=== PATIENT | female | born 1980 | race Caucasian/White ===

== ENCOUNTER 2018-09-20 14:09 | Outpatient (REF) | payer BC, SELFPAY ==
--- NOTE | 2018-09-20 13:45 | PAPFT_PTH ---
PATIENT: Lalita Dale LOC: [facility] U#:[id number] AGE/SX: 38/F ROOM: RE09/20/[address]: MARYLOU Hernandez : 1980 BED: DIS: 09/20/2018 SPEC #: [id number] RECD: 09/20/18 17:18 STATUS: MARIA TERESACari REQ #: [id number] KEVIN: 09/20/18 13:[address]: Nkechi Bardales DEPT: [facility] Cytology RECD BY: Misty Mcclain ENTERED: 09/20/18 17:19 SP TYPE: PAPFT SUSAN DR: Unknown,Unknown Tissues: 1 - CX/ENDOCX FOR PAP SMEARS Procedures: PAP THIN PREP/UVM Screening HPV DNA PROBE Comments: [id number]
== END 2018-09-20 14:29 ==
LOC: LBN 14:09
PROVIDERS: Visit Provider Nurse Practitioner Family
DX: Z12.4 Encounter for screening for malignant neoplasm of cervix (principal); Z11.51 Encounter for screening for human papillomavirus (HPV)
CPT/HCPCS: 88142; 87624

== ENCOUNTER 2018-11-29 16:55 | Emergency (ER) | payer BC, SELFPAY ==
[2018-11-29 16:58] VITALS: BP 133/80; PULSE 78; RESP 18; TEMP 36.9; O2SAT 98
[2018-11-29 17:01] VITALS: RESP 18
--- NOTE | 2018-11-29 18:14 | W.ED.GENAD ---
Discharge Plan Disposition Patient Disposition: HOME Condition: Stable Discharge Details Chief Complaint: GenMedical Clinical Impression: Heart palpitations Primary Care Provider: John Rae ED Provider: Antonio Raya Home Meds and New Rx's Prescriptions: No Action multivitamin [Daily Vitamin] 1 EACH tablet 1 ea PO DAILY RF: 0 Mirena 1 EACH intrauterine device 1 ea Intrauterine RF: 0 Discharge Instructions Instructions: Palpitations (ED) Additional Instructions: i have placed you on our follow up list to see your primary care provider sooner if you feel more ill or have severe pain or worsening difficulty breathing return to the emergency department Medical Decision Making 38 yo female who denies chronic medical problems, smoking alcohol or drug use comes in with complaints of feeling her heart beating fast and having a choking sensation intermittently in her neck with this for the last few days. The symptoms last a minute or so when they happen, can't think of anything that brings them on or makes them go away. No fevers, chills and has no symptoms currently, no throat pain. She has normal oropharynx, no respiratory dsitress or other symptoms. I suspect she could have episodes of svt. Will check for electrolyte abnormalities and anemia and thyroid disorder. No severe chest pain so doubt acs, heart score is 1 will check troponin. No evidence of dvt, no pleuritic pain and no hypoxia or tachycardia so doubt pe. No tearing back pain so doubt dissection. If negative will likely refer to pcp for outpatient holter vs zio labs unremarkable as is ecg and remains asymptomatic. Will have her f/u with pcp for possible holter vs zio and return precautions given Differential Diagnosis svt, anemia, thyroid dysfunction Lab Data Lab results reviewed: Yes I reviewed the patient's lab results. ECG Data Attestation: I personally reviewed and interpreted this ECG (s) as follows: Prior ECG tracings: not available for review Interpretation: sinus rhythm, rate of 60, pr 150, no acute st t wave ischemic findings HPI General Mode of arrival: ambulatory. Date/Time Provider Initiated Documentation: 11/29/18 17:02. Limitations to Documentation: no limitations. Information obtained by: patient. History of Present Illness 38 year old F presents to the emergency department with the chief complaint of palpitations, described as moderate, Patient started experiencing this day(s) (3) and it has been intermittent. No relieving factors improve symptom(s), No exacerbating factors reported . Patient did receive the following treatments prior to arrival, none Related Data Home Medications Medication Instructions Recorded Confirmed multivitamin [Daily Vitamin] 1 ea PO DAILY 09/28/12 11/29/18 levonorgestrel [Mirena] 1 ea INTRAUTERINE 10/03/13 09/20/18 Allergies Allergy/AdvReac Type Severity Reaction Status Date / Time No Known Drug Allergies Allergy Unverified 11/29/18 17:01 General Stated Complaint: GenMedical DELIA: 4 Review of Systems Review of Systems All systems reviewed & are unremarkable except as noted in HPI and below Constitutional Denies chills, Denies fever(s) and Denies weakness Respiratory Denies cough Gastrointestinal Denies abdominal pain, Denies nausea and Denies vomiting Musculoskeletal Denies joint swelling Neurologic Denies weakness Endocrine Denies heat intolerance [facility], [facility] Social History (Updated 09/20/18 @ 13:31 by Nkechi Bardales NP) Smoking/Tobacco Use Status: Never Alcohol Intake: current Alcohol Intake frequency: holidays/special occasions only Substance use type: does not use current occupation: [employer] Do you feel safe at home: Yes Do you feel safe in your relationship?: Yes Exam Const General: no acute distress Orientation: alert HENMT Head: normal to inspection Ears: external ears normal General nose exam: external nose normal Mouth: moist mucous membranes Eyes General: appearance normal, both eyes and all related structures Neck Neck: normal visual inspection Resp Effort & Inspection: normal respiratory effort and able to speak in complete sentences Cardio Rate: regular rate Skin General skin exam: no rashes or lesions noted Neuro General: alert and oriented x3 Extrem General: normal to inspection Psych Mental Status: mental status grossly normal Course Vital Signs Temperature 36.9 C 11/29/18 16:58 Pulse 78 11/29/18 16:58 Respiratory Rate 18 11/29/18 16:58 Blood Pressure 133/80 11/29/18 16:58 Pulse Oximetry 98 11/29/18 16:58 Temperature 36.9 C 11/29/18 16:58 Temperature Source Temporal Artery Scan 11/29/18 16:58 Pulse 78 11/29/18 16:58 Respiratory Rate 18 11/29/18 17:01 Respiratory Effort 11/29/18 17:01 Respiratory Depth Normal 11/29/18 17:01 Respiratory Pattern Normal 11/29/18 17:01 Blood Pressure 133/80 11/29/18 16:58 Pulse Oximetry 98 11/29/18 16:58 Pain Level 0 11/29/18 16:58
[2018-11-29 18:26] LABS: Absolute Basophil Count 0.02 k/cumm (0.0-0.2); Absolute Eosinophil Count 0.09 k/cumm (0.0-0.7); Absolute Lymphocyte Count 2.32 k/cumm (1.2-3.4); Absolute Neutrophil Count 4.21 k/cumm (1.2-6.7); Basophils % 0.3; Eosinophils % 1.3; HCT 41.2 % (36.0-46.0); HGB 14.1 g/dL (12.0-15.5); Lymphocytes % 33.4; Mean Corp. HGB Concentration 34.2 g/dL (32.0-36.0); Mean Corpuscular Hemoglobin 30.7 pg (27.0-33.0); Mean Corpuscular Volume 89.6 fL (80-95); Mean Platelet Volume 9.3 fL (8.0-11.0); Monocytes % 4.3; Neutrophils % 60.7; Platelet Count 284 x1000/uL (130-400); RBC Distribution Width 12.7 % (11.7-14.6); White Blood Cell Count 6.94 k/cumm (4.4-10.8)
[2018-11-29 18:49] LABS: ALT 13 U/L (12-78); AST 6 U/L (15-37); Albumin 4.1 g/dL (3.4-5.0); Alkaline Phosphatase 61 U/L (46-116); Anion Gap 7.7 mmol/L (3-11); BUN 12 mg/dL (7-18); Bilirubin, Total 1.6 mg/dL (0.2-1.0); CO2 27.3 mmol/L (21.0-32.0); CREATININE 0.47 mg/dL (0.55-1.02); Calcium 9.2 mg/dL (8.5-10.1); Chloride 104 mmol/L (98-107); Glucose 93 mg/dL (70-100); Magnesium 2.2 mg/dL (1.8-2.4); Potassium 3.9 mmol/L (3.5-5.1); Sodium 139 mmol/L (136-145); TSH (W/Ref FT4) 2.55 uIU/mL (0.36-3.74); Total Protein 7.1 g/dL (6.4-8.2)
[2018-11-29 18:58] LABS: Troponin I < 0.05 ng/mL (0.00-0.06)
[2018-11-29 19:16] VITALS: BP 133/80; PULSE 78; RESP 18; TEMP 36.9; O2SAT 98
--- NOTE | 2018-11-29 21:57 | NUR.NOTE ---
Nursing Note: faxed to [facility] internal....11/29/18
== END 2018-11-29 19:42 | disposition home or self-care (01) ==
PROVIDERS: Emergency Provider Emergency Medicine; PCP Nurse Practitioner Family
DX: R00.2 Palpitations (principal)
CPT/HCPCS: 36415; 80053; 93005; 99284; 83735; 84443; 84484; 85025; 93010

== ENCOUNTER 2019-01-19 13:23 | Outpatient (REF) | payer BC, SELFPAY ==
[2019-01-19 20:09] LABS: Vitamin D 25 Total 31.8 ng/ml (30-100)
== END 2019-01-19 13:43 ==
LOC: NCHCN 13:23
PROVIDERS: PCP Nurse Practitioner Family; Visit Provider Nurse Practitioner
DX: Z13.21 Encounter for screening for nutritional disorder (principal)
CPT/HCPCS: 82306

== ENCOUNTER 2019-11-03 17:35 | Outpatient (REF) | payer OTHER, SELFPAY ==
[2019-11-06 16:43] LABS: Chlamydia Result Negative (Negative); GC Result Negative (Negative)
== END 2019-11-03 17:55 ==
LOC: LBN 17:35
PROVIDERS: PCP Nurse Practitioner Family; Visit Provider Nurse Practitioner Family
DX: Z11.3 Encounter for screening for infections with a predominantly sexual mode of transmission (principal)
CPT/HCPCS: 87491; 87591

== ENCOUNTER 2021-02-04 13:37 | Outpatient (REF) | payer OTHER, SELFPAY ==
[2021-02-04 14:45] LABS: TSH (W/Ref FT4) 1.81 uIU/mL (0.36-3.74)
== END 2021-02-04 13:38 | disposition home or self-care (01) ==
LOC: NCHCN 13:37
PROVIDERS: PCP Nurse Practitioner Family; Visit Provider Nurse Practitioner
DX: R63.5 Abnormal weight gain (principal); F41.9 Anxiety disorder, unspecified
CPT/HCPCS: 84443

== ENCOUNTER 2021-02-19 02:18 | Outpatient (CLI) | payer OTHER, SELFPAY ==
--- NOTE | 2021-02-19 09:30 | DI.MRI_ITS ---
Exam(s) MR IAC BRAIN WO/W EXAM: MR IAC BRAIN WO/W CLINICAL HISTORY: optokinetic dizziness, r/o MS,DIZZINESS,R42 TECHNIQUE: Multiplanar multisequence MRI of the brain was performed. Both noninfused and contrast i nfused sequences were performed. IV Contrast injected was 13 cc Dotarem. COMPARISON: No exams were available for comparison FINDINGS: CEREBRAL PARENCHYMA: No evidence of intracranial hemorrhage, mass effect nor shift of midline structu re. No extraaxial fluid collections. Ventricles are not enlarged nor shifted. There is no significant focal signal abnormality in the cerebellar hemispheres nor within the kenzie, m idbrain, and thalami. There is no abnormal signal abnormality in the periventricular white matter. There are no ring enhancing lesions in the brain. There is no abnormal meningeal enhancement. DIFFUSION IMAGING: No evidence of restricted diffusion IAC'S: There there is no evidence of mass in the cerebellopontine angles. The 7th and 8th cranial ne rve appear unremarkable within the internal auditory canals on the sub millimeters slice thickness FI ESTA sequence. Also no evidence of enhancing intra canalicular mass PITUITARY GLAND: No mass nor parasellar abnormality. No obvious abnormality in the cavernous sinuses. FLOW VOIDS: The expected flow void are noted. No evidence of obvious aneurysm nor obvious vascular ma lformation. PARANASAL SINUSES: The visualized paranasal sinuses appear unremarkable. ORBITS: No obvious abnormal findings. IMPRESSION: 1. No significant intracranial findings on this MRI scan of the brain. 2. No abnormal enhancing intracranial finding. 3. No evidence of acoustic neuroma-schwannoma. DATA REPOSITORY:
[2021-02-19] MEDS: Normal Saline Flush 10 ML SYR IVP (10:54)
[2021-02-19] MEDS: Gadoterate meglumine 20 ML VIAL 13 ML IVP (10:55)
== END 2021-02-19 02:38 ==
PROVIDERS: PCP Nurse Practitioner Family; Visit Provider Otolaryngology
DX: R42 Dizziness and giddiness (principal)
CPT/HCPCS: 70553

== ENCOUNTER 2021-03-25 19:27 | Outpatient (REF) | payer OTHER, SELFPAY ==
[2021-03-25 20:28] LABS: HCT 43.2 % (36.0-46.0); HGB 14.5 g/dL (11.2-15.7); MCH 30.3 pg (27.0-33.0); MCHC 33.6 % (32.0-36.0); MCV 90.2 fL (80-95); MPV 9.8 fL (8.0-11.0); Platelet Count 273 10^3/uL (130-400); RBC 4.79 10^6/uL (3.93-5.22); RDW 12.2 % (11.7-14.6); WBC 6.26 10^3/uL (4.4-10.8)
[2021-03-25 21:12] LABS: ALT 19 U/L (14-59); AST 11 U/L (15-37); Albumin 4.2 g/dL (3.4-5.0); Alkaline Phosphatase 59 U/L (46-116); Anion Gap 7.8 mmol/L (3-11); BUN 10 mg/dL (7-18); CO2 29.2 mmol/L (21.0-32.0); CREATININE 0.5 mg/dL (0.55-1.02); Calcium 8.9 mg/dL (8.5-10.1); Chloride 105 mmol/L (98-107); Glucose 91 mg/dL (74-106); Potassium 3.8 mmol/L (3.5-5.1); Sodium 142 mmol/L (136-145); Vitamin B12 252 pg/mL (193-986)
[2021-03-27 00:59] LABS: Vitamin D 25 Total 29.5 ng/mL (30-100)
== END 2021-03-25 19:28 | disposition home or self-care (01) ==
LOC: NCHCN 19:27
PROVIDERS: PCP Nurse Practitioner Family; Visit Provider Nurse Practitioner
DX: F41.9 Anxiety disorder, unspecified (principal); R42 Dizziness and giddiness; L65.9 Nonscarring hair loss, unspecified; Z13.21 Encounter for screening for nutritional disorder
CPT/HCPCS: 80053; 82306; 85027; 82607

== ENCOUNTER 2021-04-18 10:39 | Outpatient (REF) | payer OTHER, SELFPAY ==
--- NOTE | 2021-04-18 09:45 | PAPFT_PTH ---
PATIENT: Lalita Dale LOC: [facility] U#:[id number] AGE/SX: 41/F ROOM: RE04/18/[address]: MARYLOU Hernandez : 1980 BED: DIS: 04/18/2021 SPEC #: [id number] RECD: 04/18/21 13:03 STATUS: DIANA REArthur #: [id number] KEVIN: 04/18/21 09:[address]: Nkechi Bardales [facility] Cytology RECD BY: Misty Mcclain ENTERED: 04/18/21 13:03 SP TYPE: PAPFT OTHR DR: John Rae Tissues: 1 - CX/ENDOCX FOR PAP SMEARS Procedures: PAP THIN PREP/UVM Screening HPV DNA PROBE Comments: [id number]
== END 2021-04-18 10:40 | disposition home or self-care (01) ==
LOC: LBN 10:39
PROVIDERS: PCP Nurse Practitioner Family; Visit Provider Nurse Practitioner Family
DX: Z12.4 Encounter for screening for malignant neoplasm of cervix (principal); Z11.51 Encounter for screening for human papillomavirus (HPV)
CPT/HCPCS: 88142; 87624

== ENCOUNTER 2022-11-16 01:16 | Outpatient (CLI) | payer OTHER, SELFPAY ==
--- NOTE | 2022-11-16 11:45 | DI.MAMMO_ITS ---
Exam(s) MAMMO SCREENING EXAM: MAMMO SCREENING CLINICAL HISTORY: screening. TECHNIQUE: Bilateral full field digital CC and MLO mammographic images were obtained with 3D tomosyn thesis and utilizing computer aided detection (CAD). COMPARISON: None. This is a baseline mammogram on this 42-year-old patient. FINDINGS: No significant findings in left breast. In the right breast there is asymmetric density-possible nodule measuring 8 by 4 millimeters, located approximately 8 cm in from the nipple on the MLO view. No associated microcalcifications. There are no malignant-appearing microcalcification groups in thi s region or elsewhere in either breast. There is no significant architectural distortion nor skin thickening-retraction. IMPRESSION: No radiographic evidence of malignancy in the left breast. There is an 8 x 4 millimeter asymmetric density-possible nodule in the right breast. Spot compressio n right breast MLO view and ultrasound recommended. BI-RADS Category 0 - Assessment Incomplete: Need additional imaging evaluation Breast Density - Category B - Scattered areas of fibroglandular density Breast density Category C or D implies that the patient has dense breast tissue. Dense breast tissue can make it harder to find cancer on a mammogram. Dense breast tissue is also associated with an incr eased risk of breast cancer. This information about the result of the mammogram report was provided to the patient to raise their awareness. Use this report when you speak with the patient about their risks for breast cancer, which includes their family history. At that time, you may recommend additional screening tests (Ultrasoun d or MRI) as these tests may add significant information. A negative radiographic report should not delay biopsy if a dominant or clinically suspicious mass is present. Up to ten percent of cancers are not identified on mammography. A negative report may reinforce clinical impression. Adenosis and dense breasts may obscure an underlying neoplasm. False positive reports average 6 to 10%. Patient will receive a letter notifying them of these results.
== END 2022-11-16 01:36 ==
LOC: DI 01:18
PROVIDERS: Visit Provider Nurse Practitioner Women's Health
DX: Z12.31 Encounter for screening mammogram for malignant neoplasm of breast (principal)
CPT/HCPCS: 77063; 77067

== ENCOUNTER 2022-11-19 01:24 | Outpatient (CLI) | payer OTHER, SELFPAY ==
--- NOTE | 2022-11-19 14:21 | DI.MAMMO_ITS ---
Exam(s) MG MAMMO SCREEN CALL BACK UNI US BREAST RT LIMITED EXAM: MG MAMMO SCREEN CALL BACK UNI-RIGHT AND COMPLETE RIGHT BREAST ULTRASOUND CLINICAL HISTORY: F/U MAMMO, ASYMMETRIC DENSITY, ? NODULE. TECHNIQUE: Unilateral RIGHT BREAST spot mammographic images obtained with 3D tomosynthesisand utiliz ing computer aided detection (CAD). . Complete RIGHT breast Ultrasound was also performed, including all 4 quadrants, the retroareolar efren on, and the ipsilateral axilla. COMPARISON: Prior mammograms were reviewed. This additional imaging was performed due to findings described on the recent BASELINE screening mammogram of 11/16/2022. FINDINGS: DIAGNOSTIC MAMMOGRAM: Additional mammographic views performed todayrender this area less concerning. COMPLETE RIGHT BREAST ULTRASOUND: Ultrasound performed today reveals no evidence of solid or significant cystic lesion. Therefore this finding in the right breast probably benign intramammary lymph node.. Scanning of the ipsilateral axilla reveals no significant adenopathy. IMPRESSION: 1. Benign-appearing right breast findings. Appropriate follow-up is repeat right breast mammogram in 6 months to ensure stability.. The patient was informed of these findings and recommendations by myself prior to leaving the [facility] today. BI-RADS Category 3 - 6 month - Probably Benign Finding: Recommend follow-up mammography in 6 months Breast Density - Category B - Scattered areas of fibroglandular density Breast density Category C or D implies that the patient has dense breast tissue. Dense breast tissue can make it harder to find cancer on a mammogram. Dense breast tissue is also associated with an incr eased risk of breast cancer. This information about the result of the mammogram report was provided to the patient to raise their awareness. Use this report when you speak with the patient about their risks for breast cancer, which includes their family history. At that time, you may recommend additional screening tests (Ultrasoun d or MRI) as these tests may add significant information. A negative radiographic report should not delay biopsy if a dominant or clinically suspicious mass is present. Up to ten percent of cancers are not identified on mammography. A negative report may reinforce clinical impression. Adenosis and dense breasts may obscure an underlying neoplasm. False positive reports average 6 to 10%. Patient will receive a letter notifying them of these results.
== END 2022-11-19 01:44 ==
LOC: DI 01:24
PROVIDERS: Visit Provider Nurse Practitioner Women's Health
DX: Z12.31 Encounter for screening mammogram for malignant neoplasm of breast (principal); R92.8 Other abnormal and inconclusive findings on diagnostic imaging of breast
CPT/HCPCS: 76642; 77063; 77067

== ENCOUNTER → 2023-05-21 01:17 | Outpatient (CLI) | payer OTHER, SELFPAY ==
--- NOTE | 2023-05-21 08:00 | DI.MAMMO_ITS ---
Exam(s) MAMMO DIAGNOSTIC UNI EXAM: MAMMO DIAGNOSTIC UNI CLINICAL HISTORY: 6 month f/u,R92.8. TECHNIQUE: Craniocaudal and mediolateral oblique Full Field Digital Mammography views of the right b reast with Computer Aided Diagnosis followed by Tomosynthesis. COMPARISON: Comparison is made with prior examinations. FINDINGS: Mammography/Tomosynthesis: Masses/Architectural Distortion: No suspicious masses or areas of architectural distortion are presen t. Microcalcifictions: No suspicious pleomorphic-type are seen. Skin Thickening/Nipple Retraction: None. IMPRESSION: 1. No evidence of malignancy is noted. 2. Unless there is more urgent need, follow-up screening mammography is recommended, as per [employer] guidelines. 3. The findings were discussed with the patient on the date of the examination. BI-RADS Category 1 - Negative Breast Density - Category B - Scattered areas of fibroglandular density Breast density Category C or D implies that the patient has dense breast tissue. Dense breast tissue can make it harder to find cancer on a mammogram. Dense breast tissue is also associated with an incr eased risk of breast cancer. This information about the result of the mammogram report was provided to the patient to raise their awareness. Use this report when you speak with the patient about their risks for breast cancer, which includes their family history. At that time, you may recommend additional screening tests (Ultrasoun d or MRI) as these tests may add significant information. A negative radiographic report should not delay biopsy if a dominant or clinically suspicious mass is present. Up to ten percent of cancers are not identified on mammography. A negative report may reinforce clinical impression. Adenosis and dense breasts may obscure an underlying neoplasm. False positive reports average 6 to 10%. Patient will receive a letter notifying them of these results.
== END ==
PROVIDERS: Visit Provider Nurse Practitioner Women's Health
DX: R92.8 Other abnormal and inconclusive findings on diagnostic imaging of breast (principal); Z12.31 Encounter for screening mammogram for malignant neoplasm of breast
CPT/HCPCS: 77061; 77065; G0279

== ENCOUNTER 2023-09-21 15:56 | Outpatient (CLI) | payer OTHER, SELFPAY ==
[2023-09-21 16:39] LABS: TSH (W/Ref FT4) 2.04 uIU/mL (0.36-3.74)
== END 2023-09-21 15:57 | disposition home or self-care (01) ==
LOC: LBO 15:56
PROVIDERS: Visit Provider Nurse Practitioner Women's Health
DX: N93.8 Other specified abnormal uterine and vaginal bleeding (principal); N91.2 Amenorrhea, unspecified
CPT/HCPCS: 36415; 84443

== ENCOUNTER → 2023-11-22 02:22 | Outpatient (CLI) | payer OTHER, SELFPAY ==
--- NOTE | 2023-11-22 07:30 | DI.MAMMO_ITS ---
Exam(s) MAMMO SCREENING EXAM: MAMMO SCREENING CLINICAL HISTORY: screening. TECHNIQUE: Bilateral full field digital CC and MLO mammographic images were obtained with 3D tomosyn thesis and utilizing computer aided detection (CAD). COMPARISON: Prior mammograms were reviewed. FINDINGS: There has been no significant change in the appearance and distribution of the fibroglandular tissue. No new left breast findings. In the right breast previously described small benign-appearing nodules unchanged and most probably a benign intramammary lymph node, given its appearance and lack of visibility of prior recent ultrasou nd examination. There are no malignant-appearing microcalcification groups in either breast. There is no significant architectural distortion nor skin thickening-retraction. IMPRESSION: No radiographic evidence of malignancy. Stable benign-appearing findings BI-RADS Category 2 - Benign Findings Breast Density - Category B - Scattered areas of fibroglandular density Breast density Category C or D implies that the patient has dense breast tissue. Dense breast tissue can make it harder to find cancer on a mammogram. Dense breast tissue is also associated with an incr eased risk of breast cancer. This information about the result of the mammogram report was provided to the patient to raise their awareness. Use this report when you speak with the patient about their risks for breast cancer, which includes their family history. At that time, you may recommend additional screening tests (Ultrasoun d or MRI) as these tests may add significant information. A negative radiographic report should not delay biopsy if a dominant or clinically suspicious mass is present. Up to ten percent of cancers are not identified on mammography. A negative report may reinforce clinical impression. Adenosis and dense breasts may obscure an underlying neoplasm. False positive reports average 6 to 10%. Patient will receive a letter notifying them of these results.
== END ==
PROVIDERS: Visit Provider Nurse Practitioner Women's Health
DX: Z12.39 Encounter for other screening for malignant neoplasm of breast (principal); Z12.31 Encounter for screening mammogram for malignant neoplasm of breast
CPT/HCPCS: 77063; 77067

== ENCOUNTER 2024-09-12 16:21 | Outpatient (REF) | payer OTHER, SELFPAY ==
[2024-09-12 17:29] LABS: Abs Immature Grans 0.01 10^3/uL (0.0-0.06); Absolute Basophil Count 0.04 10^3/uL (0.0-0.2); Absolute Eosinophil Count 0.05 10^3/uL (0.0-0.7); Absolute Lymphocyte Count 1.73 10^3/uL (1.2-3.4); Absolute Neutrophil Count 2.97 10^3/uL (1.2-6.7); Basophils % 0.8 %; HCT 43.3 % (36.0-46.0); HGB 14.9 g/dL (11.2-15.7); Immature Grans % 0.2 %; Lymphocytes % 34.6 %; MCH 30.5 pg (27.0-33.0); MCHC 34.4 % (32.0-36.0); MCV 89 fL (80-95); MPV 9.7 fL (8.0-11.0); Neutrophils % 59.4 %; Platelet Count 338 10^3/uL (130-400); RBC 4.88 10^6/uL (3.93-5.22); RDW 12.7 % (11.7-14.6); RDW-SD 41.3 fL
[2024-09-12 17:34] LABS: ESR 8 mm/hr (0-20)
[2024-09-12 17:57] LABS: ALT 47 U/L (14-59); AST 27 U/L (15-37); Albumin 4.2 g/dL (3.4-5.0); Alkaline Phosphatase 74 U/L (46-116); Anion Gap 8.4 mmol/L (3-11); BUN 8 mg/dL (7-18); Bilirubin, Total 1.7 mg/dL (0.2-1.0); CO2 26.6 mmol/L (21.0-32.0); CREATININE 0.6 mg/dL (0.55-1.02); Calcium 9.2 mg/dL (8.5-10.1); Calculated LDL 97 mg/dL (<100); Chloride 105 mmol/L (98-107); Cholesterol 150 mg/dL (<200); Estimated GFR 113.44 (mL/min/1.73m2); Glucose 96 mg/dL (74-106); HDL Cholesterol 36 mg/dL (>or=50); Sodium 140 mmol/L (136-145); Total Protein 7.2 g/dL (6.4-8.2); Triglyceride 87 mg/dL (<150)
[2024-09-12 18:08] LABS: C-Reactive Protein < 0.50 mg/dL (<or=0.5)
[2024-09-12 18:23] LABS: Hemoglobin A1C 4.9 % (<5.7)
== END 2024-09-12 16:22 | disposition home or self-care (01) ==
LOC: NCHCN 16:21
PROVIDERS: Visit Provider Student in an Organized Health Care Education/Training Program
DX: R10.11 Right upper quadrant pain (principal); Z13.1 Encounter for screening for diabetes mellitus; Z13.220 Encounter for screening for lipoid disorders
CPT/HCPCS: 80053; 80061; 85652; 83036; 85025; 86140

== ENCOUNTER 2024-09-18 13:14 | Outpatient (CLI) | payer OTHER, SELFPAY ==
[2024-09-18 11:16] LABS: Bilirubin, Direct 0.3 mg/dL (0.0-0.2); Bilirubin, Total 1.7 mg/dL (0.2-1.0)
== END 2024-09-18 13:15 | disposition home or self-care (01) ==
LOC: LBO 13:15
PROVIDERS: Visit Provider Student in an Organized Health Care Education/Training Program
DX: E80.6 Other disorders of bilirubin metabolism (principal)
CPT/HCPCS: 36415; 82247; 82248

== ENCOUNTER 2024-11-22 01:43 | Outpatient (CLI) | payer OTHER, SELFPAY ==
--- NOTE | 2024-11-22 08:00 | DI.MAMMO_ITS ---
Exam(s) MAMMO SCREENING EXAM: MAMMO SCREENING CLINICAL HISTORY: screening TECHNIQUE: Bilateral full field digital CC and MLO mammographic images were obtained with 3D tomosynthesis and utilizing computer aided detection (CAD). COMPARISON: Comparison is made with prior examinations. FINDINGS: Masses/Architectural Distortion: No suspicious masses or areas of architectural distortion are present. The asymmetric density in the central right breast on the MLO view appears stable. Microcalcifications: No suspicious pleomorphic-type are seen. Skin Thickening/Nipple Retraction: None. IMPRESSION: 1. No significant interval change with no specific features of malignancy noted. 2. Unless there is more urgent need, screening mammography is recommended, as per [employer] guidelines. BI-RADS Category 2 - Benign Findings Breast Density - Category B - There are scattered areas of fibroglandular density. Breast density Category C or D implies that the patient has dense breast tissue. Dense breast tissue can make it harder to find cancer on a mammogram. Dense breast tissue is also associated with an increased risk of breast cancer. This information about the result of the mammogram report was provided to the patient to raise their awareness. Use this report when you speak with the patient about their risks for breast cancer, which includes their family history. At that time, you may recommend additional screening tests (Ultrasound or MRI) as these tests may add significant information. A negative radiographic report should not delay biopsy if a dominant or clinically suspicious mass is present. Up to ten percent of cancers are not identified on mammography. A negative report may reinforce clinical impression. Adenosis and dense breasts may obscure an underlying neoplasm. False positive reports average 6 to 10%. Patient will receive a letter notifying them of these results.
== END 2024-11-22 02:03 ==
PROVIDERS: PCP Student in an Organized Health Care Education/Training Program; Visit Provider Nurse Practitioner Women's Health
DX: Z12.31 Encounter for screening mammogram for malignant neoplasm of breast (principal); R92.323 Mammographic fibroglandular density, bilateral breasts
CPT/HCPCS: 77063; 77067